=== PATIENT | female | born 1980 | race Caucasian/White ===

== ENCOUNTER 2018-12-18 09:44 | Outpatient (CLI) | payer MEDICAID ==
--- NOTE | 2018-12-18 11:05 | ULT ---
PELVIC ULTRASOUND: Date: 12/18/18 HISTORY: Left lower quadrant pain. FINDINGS: Real-time imaging of the pelvis was obtained transabdominally and with an endovaginal probe. The uterus is very heterogeneous in appearance. It measures 5.6 x 5.5 x 7.7 cm. Endometrium is thicke evelyn. It is difficult to define discrete fibroids, but this could indicate some fibromatous type lopez e. Left ovary shows a large 4.1 cm cyst. Right ovary shows some smaller follicles, as well as a cyst whi ch measures approximately 1.5 cm. IMPRESSION: 1. 4.1 cm left ovarian cyst. 2. Very heterogeneous appearance to the uterus, although it is difficult to define discrete fibroids . Pelvic MRI may be helpful in assessment of this. POS: [facility]
== END 2018-12-18 09:45 | disposition home or self-care (01) ==
LOC: BICULT 09:44
PROVIDERS: ATTEND Family Medicine
DX: D25.9 Leiomyoma of uterus, unspecified (principal); N83.202 Unspecified ovarian cyst, left side
CPT/HCPCS: 76856